=== PATIENT | female | born 1935 | race Caucasian/White ===

== ENCOUNTER 2020-06-24 12:53 | Emergency (ER) | payer MEDICARE, OTHER ==
[~2020-06-24] VITALS: Ht 147.3 cm; Wt 64.5 kg
[2020-06-24] MEDS ORDERED: HYDROmorphone 1 MG/ML, 1ML INJ ONE (13:27)
[2020-06-24] MEDS ORDERED: HYDROmorphone 1 MG/ML, 1ML INJ IM ONE (13:30)
--- NOTE | 2020-06-24 14:09 | NUR ---
PT BACK FROM XRAY.
--- NOTE | 2020-06-24 14:20 | NUR ---
WARM BLANKETS PROVIDED. R SHOULDER WRAPPED WITH WARMTH.
[2020-06-24] MEDS ORDERED: MORPHINE SULFATE 4 MG/ML, 1ML ONE (14:53)
[2020-06-24] MEDS ORDERED: MORPHINE SULFATE 4 MG/ML, 1ML IVPush PRN (15:00)
--- NOTE | 2020-06-24 15:03 | NUR ---
BREAK RN: PT MED NOTED FOR PAIN 03/01. PT VERBALIZES UNDERSTANDING OF PLAN TO IMMOBILIZE SHOULDER AND WILL F/U WITH [facility]. GRANDDAUGHTER AT BEDSIDE.
[2020-06-24 15:34] VITALS: BP 138/53
--- NOTE | 2020-06-24 15:35 | NUR ---
Patient/Caregiver given discharge instructions and they have confirmed that they understand the instructions. Patient ambulatory with steady gait to wheelchair
== END 2020-06-24 15:36 | disposition home or self-care (01) ==
LOC: ED 14:13
DX: S42.254A Nondisplaced fracture of greater tuberosity of right humerus, initial encounter for closed fracture (principal); X58.XXXA Exposure to other specified factors, initial encounter; Y93.89 Activity, other specified; Y92.89 Other specified places as the place of occurrence of the external cause; Y99.8 Other external cause status
CPT/HCPCS: 73030; 73070; 96372; 96374; 99285; J1170; J2270